=== PATIENT | female | born 1990 | race Hispanic/Latino ===

== ENCOUNTER 2017-08-25 01:46 | Emergency (ER) | payer BC ==
[2017-08-25] MEDS ORDERED: Ibuprofen 800 MG TAB ONE (02:57)
== END 2017-08-25 03:06 | disposition home or self-care (01) ==
LOC: ERS 01:46
DX: H60.91 Unspecified otitis externa, right ear (principal); F32.9 Major depressive disorder, single episode, unspecified
CPT/HCPCS: 99282

== ENCOUNTER 2018-04-14 08:35 | Emergency (ER) | payer BC, SELFPAY | END 2018-04-14 08:54 | disposition home or self-care (01) | LOC: ERS 08:35 | DX: K08.89 Other specified disorders of teeth and supporting structures (principal); E11.9 Type 2 diabetes mellitus without complications; I10 Essential (primary) hypertension; F32.9 Major depressive disorder, single episode, unspecified | CPT/HCPCS: 99282 ==